=== PATIENT | male | born 1945 | race Two or more races ===

== ENCOUNTER → 2024-04-15 | Outpatient (CLI) | payer MEDICARE, SELFPAY ==
--- NOTE | 2024-04-15 10:00 | XR_ITS ---
Examination: CT left lower extremity, without contrast. 2-D sagittal reconstructions. 2-D coronal reconstructions. 3-D reconstructions. Date and time of exam:April 15, 2024 0955 hours INDICATIONS: Left knee osteoarthritis knee pain 6 years CTDI: vol (mGy):10.4 DLP: (mGycm):795 Technique: Multiple 1.25 mm axial sections of the left lower extremity without intravenous contrast have been obtained. 2-D sagittal and coronal reconstructions have been obtained. 3-D reconstructions have been obtained. Low dose protocols were performed. One or more of the following dose reduction techniques were used; automated exposure control, adjustment of the mA and/or KV according to patient size, use of iterative reconstruction technique. Findings: Significant osteopenia Mild to moderate left hip osteoarthritis No left hip fracture or dislocation Advanced left knee tricompartment osteoarthritis, most severe medial joint space No fracture No patellar dislocation IMPRESSION: Advanced left knee tricompartment osteoarthritis
== END | disposition home or self-care (01) ==
PROVIDERS: PCP Student in an Organized Health Care Education/Training Program; Referring Provider Orthopaedic Surgery Adult Reconstructive Orthopaedic Surgery; Visit Provider Orthopaedic Surgery Adult Reconstructive Orthopaedic Surgery
DX: M17.12 Unilateral primary osteoarthritis, left knee (principal)
CPT/HCPCS: 73700

== ENCOUNTER 2024-05-08 10:54 | Outpatient (AMB) | payer MEDICARE, SELFPAY ==
[2024-05-08 11:19] VITALS: BP 116/58; PULSE 69; RESP 16; TEMP 35.8; O2SAT 97; BMI 27.8
--- NOTE | 2024-05-08 11:19 | RHCORTHONT_ITS ---
Vital signs 05/08/24 11:19 Height 1.7 m Height Method Stated Weight 80.739 kg Weight Measurement Method Standing Scale BMI 27.8 BP 116/58 L Blood Pressure Source Automatic Cuff Blood Pressure Location Left Upper Arm Position Sitting Respiration 16 Pulse 69 Pulse Source Monitor Temp 96.5 F L Temp Source Temporal Artery Scan Pulse Oximetry (%) 97 Oxygen Delivery Method Room Air Med/Allergies Allergies & Medications Allergies No Known Allergies Allergy (Unknown, Verified 05/08/24 11:20) Medication Reconciliation Fluticasone Propionate NASAL * (FLONASE *) 1 spry Nasally BID #0 spry 08/10/14 [History Confirmed 05/08/24] ferrous sulfate 220 mg (44 mg iron)/5 mL oral elixir 65 mg PO BID ##0 08/10/14 [History Confirmed 05/08/24] gabapentin 800 mg tablet 800 mg PO TID #0 tabs 08/10/14 [History Confirmed 05/08/24] lisinopril 10 mg tablet 10 mg PO QDAY #0 tabs 08/10/14 [History Confirmed 05/08/24] loratadine 10 mg tablet (Claritin) 10 mg PO QDAY #0 tabs 08/10/14 [History Confirmed 05/08/24] metoprolol tartrate 50 mg tablet 50 mg PO BID #0 tabs 08/10/14 [History Confirmed 05/08/24] montelukast 10 mg tablet (Singulair) 10 mg PO HS #0 tabs 08/10/14 [History Confirmed 05/08/24] albuterol sulfate 90 mcg/actuation aerosol inhaler (ProAir HFA) 1 puff inhalation QID 09/21/23 [History Confirmed 05/08/24] azelastine 137 mcg (0.1 %) nasal spray 2 spray intranasal BID 09/21/23 [History Confirmed 05/08/24] baclofen 10 mg/5 mL (2 mg/mL) oral solution 20 mg PO QID 09/21/23 [History Confirmed 05/08/24] clopidogrel 75 mg tablet 75 mg PO QDAY 09/21/23 [History Confirmed 05/08/24] diclofenac sodium 1 % topical gel (Arthritis Pain (diclofenac)) 4 g topical QID 09/21/23 [History Confirmed 05/08/24] famotidine 20 mg tablet 20 mg PO QDAY 09/21/23 [History Confirmed 05/08/24] fluticasone fur. 200 mcg-umeclid 62.5 mcg-vilant 25 mcg inhalat.powder (Trelegy Ellipta) 1 inh inhalation Q24H 09/21/23 [History Confirmed 05/08/24] isosorbide mononitrate 30 mg tablet,extended release 24 hr 30 mg PO QAM 09/21/23 [History Confirmed 05/08/24] isosorbide mononitrate 60 mg tablet,extended release 24 hr 60 mg PO QAM 09/21/23 [History Confirmed 05/08/24] melatonin 10 mg capsule 10 mg PO HS PRN 09/21/23 [History Confirmed 05/08/24] mesalamine 1,000 mg rectal suppository 1 g NV QHS 09/21/23 [History Confirmed 05/08/24] naloxone 4 mg/actuation nasal spray (Narcan) 4 mg intranasal Q3M PRN 09/21/23 [H istory Confirmed 05/08/24] nitroglycerin 0.4 mg sublingual tablet 0.4 mg sublingual Q5M PRN 09/21/23 [History Confirmed 05/08/24] repaglinide 0.5 mg tablet 0.5 mg PO TID 09/21/23 [History Confirmed 05/08/24] rosuvastatin 40 mg tablet 40 mg PO QDAY 09/21/23 [History Confirmed 05/08/24] vitamin B complex-vitamin C-folic acid 0.8 mg tablet (Jenni-Blayne) 1 tab PO QDAY 09/21/23 [History Confirmed 05/08/24] Exam Exam Patient is in no acute distress and is cooperative with the examination today. Patient has a normal mood and affect. Breathing is nonlabored. In no respiratory distress. Bilateral extremities were evaluated and demonstrates sensation intact to light touch. Palpable pedal pulses are present. No significant edema is present. Right knee incision is clean dry intact. Range of motion 0 to 115 degrees. The knee feels stable to varus valgus stress as well as AP translation Left knee demonstrates range of motion from 0 to 105 degrees. The knee is tender to palpation medially. He has varus deformity. X-rays demonstrate significant obliteration of the medial joint space. Assessment and Plan Problem List (1) Unilateral primary osteoarthritis, left knee: Status: Acute Plan: 78-year-old male with significant left knee pain and left knee osteoarthritis. We thus discussed total knee replacement is reasonable We will see him back after he gets clearance. We discussed the risk and benefits of surgery in great detail The nature and purpose of the total knee replacement, alternative method(s) of treatment, the material risks involved, and the possibility of complications were fully explained to the patient. The patient does NOT have any of the following contraindications to TKA: - Active infection of the knee joint, OR - Active systemic bacteremia, OR - Active skin infection or open wound at surgical site, OR - Neuropathic arthritis, OR - Severe, rapidly progressive neurological disease, OR - Severe medical condition that makes risks of surgery outweigh the potential benefit The patient was told the most common risks and complications associated with a total knee replacement include, but are not limited to: blood clots in the leg, fatal pulmonary embolism, dislocation of the prosthesis, intraoperative and postoperative fractures of the femur or tibia, infection, failure of the prosthesis or grafting materials, complications from anesthesia, reactions to blood transfusions, postoperative leg length inequality, instability of the knee replacement, nerve damage or injury, vascular injury, delayed wound healing, infection, other injury or even . In addition, there are risks associated with anesthesia given during this operation. Also, the patient was told that after undergoing a total knee replacement there may still be persistent pain or disability. The patient was informed that the success of this operation in part depends upon the mechanical devices which are going to be implanted and that these devices can fail or malfunction, and may need to be repaired or replaced and there are no guarantees as to the longevity of this device or its parts and that it or its parts could fail prematurely. The patient was also notified that during the course of surgery, there may be a need to use bone graft from donors, and that any bone graft used will be carefully screened for communicable diseases, including AIDS, hepatitis, Jaxon-Creutzfeldt, or other diseases, but despite the screening procedures, there is a small chance that they could contract one of these diseases. Finally, the patient was asked to follow completely and fully with all advice and recommended treatments, and that recovery and ultimate outcome are affected by their compliance with recommended treatment. We discussed the risks, benefits and treatment alternatives, and the patient is interested in proceeding with surgery. We will try to set this up as expeditiously as possible Once he obtains clearance (2) Pain in left knee: Status: Acute Advanced Care Planning Discussion Advance care planning discussed with:: patient Office Procedures GNS Level of Care Nursing/Assessment Patient Status: Established Patient Nursing Assessment/Reassesment: Medication Reconciliation, Update PMH in EMR and Vital Signs Coordination of Care: Complex Care and Chronic Disease 1-5 and Education Complex Pt/Fam Established Patient Charge Established Patient Point Assignment: 75 Established Patient Point Charge: EP Level 2 (40-75) MA Intake Visit Data Collection New Patient or Established: Established Patient (seen at [facility] within 3 years) Reason for Visit:: pre op Lt knee replacement Seen by Clinical Staff ONLY (RN/MA): No Verbal consent obtained for Telemed visit?: No Retail Store Clerk Required: No Hx Now: No Questionairres Past Medical History Past Medical History Have you ever been diagnosed with any of the following: Respiratory Problems Smoking: No Subjective Visit Visit for: follow up visit and knee Immunization / Flu Flu Vaccine in the Last 12 Months: Yes Flu Vaccine Exclusion Criteria: Already Received History of Present Illness Chief complaint: pre op lt knee replacement Date of injury / onset of symptoms: >5 years Ned is a pleasant 79-year-old male who presents today for evaluation of his left knee. He is scheduled for total knee replacement. We answered all his questions today. He now has a walker. Personal History BMI Counceling provided: Yes Pain Pain level (0-10): 9 Pain duration: constant Pain location: inside (medial), outside (lateral), anterior and posterior Pain quality: sharp and aching Pain timing: increases with activity Associated signs & symptoms: numbness Ambulatory data Ambulatory device: cane Treatments Improvement with previous injections: Yes Improvement with PT: Yes Improvement with NSAIDS: no Review of Systems Review of Systems: All systems negative unless otherwise noted in HPI.
== END 2024-05-08 11:40 | disposition home or self-care (01) ==
LOC: HODSRG 10:54
PROVIDERS: PCP Student in an Organized Health Care Education/Training Program; Referring Provider Student in an Organized Health Care Education/Training Program; Supervising Provider Orthopaedic Surgery Adult Reconstructive Orthopaedic Surgery; Visit Provider Orthopaedic Surgery Adult Reconstructive Orthopaedic Surgery
DX: M17.12 Unilateral primary osteoarthritis, left knee (principal); M25.562 Pain in left knee
CPT/HCPCS: 99212; G0463

== ENCOUNTER 2024-05-19 05:35 | Day surgery (SDC) | payer MEDICARE, SELFPAY ==
--- NOTE | 2024-05-16 06:00 | EKG_ITS ---
[facility] Test Date: 2024-05-16 Pat Name: TEENA BALBUENA Department: Room: - Gender: Male School Health Assistant: OPHELIA : 1945 Requested By: Emery Robles Order Number: [id number] Reading MD: Emery Robles Measurements Intervals [place] Rate: 80 P: 38 VT: 189 QRS: -11 QRSD: 121 T: 60 QT: 346 QTc: 400 Interpretive Statements SINUS RHYTHM MODERATE INTRAVENTRICULAR CONDUCTION DELAY MINIMAL VOLTAGE CRITERIA FOR LVH, CONSIDER NORMAL VARIANT No previous ECG available for comparison /[id number]/[email or web address]/[id number]
[2024-05-16 07:02] VITALS: BMI 27.5
[2024-05-16 09:29] LABS: Basophils # (Auto) 0.1 Thou/mm3 (0.0-0.2); Basophils % (Auto) 1 % (0-2.5); Eosinophils # (Auto) 0.2 Thou/mm3 (0.0-0.5); Eosinophils % (Auto) 2 % (0-10); Hematocrit 31.5 % (41.0-53.0); Hemoglobin 10.8 g/dL (13.5-16.0); Immature Granulocytes % (Auto) 1 % (0-0); Immature Granulocytes Auto 0.09 Thou/mm3 (0.00-0.00); Lymphocytes # (Auto) 1.5 Thou/mm3 (1.0-4.8); Lymphocytes % (Auto) 18 % (10-50); Mean Corpuscular HGB Conc 34.3 g/dl (31.0-37.0); Mean Corpuscular Hemoglobin 32.5 pg (25.0-35.0); Mean Corpuscular Volume 95 fL (80-100); Monocytes # (Auto) 1.1 Thou/mm3 (0.0-0.8); Monocytes % (Auto) 13 % (0-12); Neutrophils # (Auto) 5.3 Thou/mm3 (1.8-7.7); Neutrophils % (Auto) 65 % (37-80); Nucleated Red Blood Cell % 0 /100 WBC (0); Platelet Count 252 Thou/mm3 (140-440); RDW Standard Deviation 45.9 fL (35.1-43.9); Red Blood Count 3.32 Miln/mm3 (4.50-5.90); White Blood Count 8.2 Thou/mm3 (3.8-10.6)
[2024-05-16 09:42] LABS: Alanine Aminotransferase 25 U/L (10-49); Albumin, Serum 4.3 gm/dL (3.4-4.8); Albumin/Globulin Ratio 1.7 (1.2-2.2); Alkaline Phosphatase 57 U/L (46-116); Anion Gap 6 (7-16); Aspartate Amino Transferase 16 U/L (0-34); BUN/Creatinine Ratio 19 Ratio (12-20); Bilirubin,Total 0.7 mg/dL (0.3-1.2); Blood Urea Nitrogen 37 mg/dL (9-23); Calcium 9.4 mg/dL (8.3-10.6); Calcium (Corrected) 9.4 mg/dL (8.5-10.1); Carbon Dioxide 28.3 mMol/L (20.0-31.0); Chloride 91 mMol/L (98-107); Creatinine (Component) 1.9 mg/dL (0.6-1.3); Globulin 2.5 gm/dL (2.3-3.5); Glucose 181 mg/dL (74-106); Osmolality,Calculated 265 (275-295); Potassium 4.5 mMol/L (3.4-5.1); Sodium 125 mMol/L (136-145); Total Protein 6.8 gm/dL (5.7-8.2); eGFR 36 See Note
[2024-05-16 09:57] LABS: INR 0.9 (0.9-1.3); Partial Thromboplastin Time 23.6 Seconds (22.0-36.0); Prothrombin Time 10.2 Seconds (9.0-12.2)
--- NOTE | 2024-05-16 14:06 | SUR.PREOP ---
Labs and cardiac records reviewed with Dr Castrejon.
[2024-05-19] VITALS (20 sets, daily range): BP systolic 117–160; BP diastolic 54–87; PULSE 72–89; RESP 12–98; TEMP 36.2–37.1; O2SAT 95–100; BMI 27.4
[2024-05-19] MEDS: ACETAMINOPHEN 325 MG TABLET 650 MG PO (06:38)
[2024-05-19] MEDS: MELOXICAM 7.5 MG TABLET PO (06:38)
[2024-05-19] MEDS: PREGABALIN 75 MG CAPSULE PO (06:38)
[2024-05-19] MEDS: SODIUM CHLORIDE 0.9% 500 ML 500 ML 20 ML IV (06:39)
[2024-05-19 07:30] LABS: Anion Gap 6 (7-16); BUN/Creatinine Ratio 18 Ratio (12-20); Blood Urea Nitrogen 30 mg/dL (9-23); Calcium 8.8 mg/dL (8.3-10.6); Carbon Dioxide 24.1 mMol/L (20.0-31.0); Chloride 97 mMol/L (98-107); Creatinine (Component) 1.7 mg/dL (0.6-1.3); Glucose 206 mg/dL (74-106); Osmolality,Calculated 267 (275-295); Potassium 4.4 mMol/L (3.4-5.1); Sodium 127 mMol/L (136-145); eGFR 41 See Note
--- NOTE | 2024-05-19 09:21 | SUR.PHASEI ---
pt received from OR in recovery bay 1. pt asleep but responds to voice, breathing unlabored on 2l nc. v/s stable. pt dressing to left lower extremity cdi. report received from Dr. Robles and Fidel KAMARA.
--- NOTE | 2024-05-19 09:37 | PD.SUROPNT ---
Date of Procedure 05/19/24 Pre Op Diagnosis left knee osteoarthritis Post Op Diagnosis left knee osteoarthritis Procedure left knee osteoarthritis Findings full thickness cartilage loss and osteophytes Procedure Description Indication: The patient is a 79 year old who has a long history of left knee pain. X-rays show degenerative arthritis involving the knee. Over the past several years the patient has had increasing pain, progressive limitation in function. He has failed conservative measures including activity modification, physical therapy, injections, anti-inflammatories, and assistive devices. After a lengthy discussion of the risks and benefits, the patient presents now for total knee replacement. The nature and purpose of the total knee replacement, alternative method(s) of treatment, the material risks involved, and the possibility of complications were fully explained to the patient. The patient was told the most common risks and complications associated with a total knee replacement include, but are not limited to blood clots in the leg, fatal pulmonary embolism, dislocation of the prosthesis, intraoperative and postoperative fractures of the femur or tibia, infection, failure of the prosthesis or grafting materials, complications from anesthesia, reactions to blood transfusions, postoperative leg length inequality, instability of the knee replacement, nerve damage or injury, vascular injury, delayed wound healing, infections, other injury or even . In addition, there are risks associated with anesthesia given during this operation, temporary or permanent numbness on the skin lateral to the incision can be a complication unique to total knee surgery, and kneeling can be painful after knee replacement surgery. Also, the patient was told that after undergoing a total knee replacement there may still be pain or disability. We discussed with the patient that we will be using a robot-assisted technology. We discussed that there is a possibility of converting to manual instrumentation. The patient was informed that the success of this operation in part depends upon the mechanical devices which are going to be implanted and that these devices can fail or malfunction, and may need to be repaired or replaced and there are no guarantees as to the longevity of this device or its part and that it or its parts could fail prematurely. Finally, the patient was asked to follow completely and fully with all advice and recommended treatments, and that recovery and ultimate outcome are affected by their compliance with recommended treatment. Surgical technique: Patient was marked and consented in the pre-operative area. The patient was brought to the operating room and placed on the operating table in a supine position. Prior to positioning, a timeout procedure was performed between the surgeon, the anesthesiologist, and the nursing staff where the patient and the operative side were identified and confirmed. After adequate general anesthetic was obtained, the left lower extremity was prepped and draped in the usual sterile fashion. A weight based dose of Cefazolin were administered within 1 hour prior to incision. The robot was preregistered and calirated before the incision. The extremity was exsanguinated with an esmarch badge and tourniquet inflated to 250mmHg. A midline incision was made. A median parapatellar arthrotomy was made. The patella was subluxed laterally. A medial release was performed to expose the medial tibia. His femoral and tibial pins were placed through an intra incisional manner for both cases. Every effort was made to ensure that the distalmost aspect of the pin was hung in the second cortex. The arrays were then tightened several times to ensure that it was fixed for the remainder of the case. Both femoral and tibial checkpoints were then placed. We then went through the registration process of the bone. We then assessed the knee deformity and attempted to correct it. We also used the robot to aid in judging laxity in both extension and flexion. Final based on laxity and alignment we changed the preoperative assessment to obtain proper proper implant positioning and to correct deformity. Attention was then placed to the tibia. We made a tibial cut using the robot ensuring that both the MCL and the patella tendon were protected with retractors. We then went to the femur and made the posterior cut followed by the anterior cut and the anterior chamfer. The bone was then removed and we made a distal femur cut and a posterior chamfer cut. We verified all cuts. A trial reduction was performed with a size 4 femoral component and a size 4 keeled tibial component. The patella tracked centrally, and no lateral retinacular release was necessary. The trial implants were removed. The arrays, pins, and checkpoints were all removed. We performed a verification that all pins were removed. The cut bone surfaces were lavaged. A size 4 left femoral component, a size 4 keeled tibial component were impacted into position. The knee was felt to be well balanced in the sagittal and coronal plane. The final 4x10 mm cruciate-substituting articular insert was impacted into the tibial tray. The knee was brought out to full extension, flexed up to 120 degrees. It was stable to varus and valgus stress and appropriately balanced in flexion and extension. The wounds were copiously irrigated following deflation of tourniquet. The medial retinaculum was reapproximated with #1 vicryl and quill. The subcutaneous tissues were closed with 0 and 2-0 interrupted Vicryl. The skin was closed with 3-0 Monofilament V loc suture. A sterile dressing was applied. The patient was transferred to a bed and brought to recovery in stable condition. The patient tolerated the procedure well. There were no intraoperative complications. Sponge and needle counts were correct times 2. As the attending surgeon, I attest I was present and performed the entire operation. Grafts/Implants Size 4 CR Femur Size 4 Tibia 10mm poly CS Anesthesia GETA Implants whitney triathlon Pathology / specimen None Pathology comment: none Estimated Blood Loss 150 Disposition observation Surgeon Ajay Raines MD Surgical Staff Operation Date: 05/19/24 07:30 Case Staff Anesthesiologist: Emery Robles RNmanufacturing engineer automotive: Sanam Reeves
--- NOTE | 2024-05-19 09:40 | XR_ITS ---
Examination: Left knee 2 views Technique one AP lateral left knee 2 views Exam date and time: May 19, 2024 1009 hours INDICATIONS: Postop knee replacement today. FINDINGS: Moderate osteopenia Total left knee arthroplasty. Satisfactory alignment. No fracture. IMPRESSION: Total left knee arthroplasty with satisfactory alignment
--- NOTE | 2024-05-19 10:23 | SUR.PHASEII ---
pt able to tolerate oral fluids without difficulty swallowing or nausea/vomiting.
--- NOTE | 2024-05-19 11:45 | SUR.PHASEII ---
pt awake and alert, breathing unlabored on 1l nc. v/s stable. pt dressing to left lower extremity cdi. report called to Love KAMARA. pt will be transferred to room at this time.
--- NOTE | 2024-05-19 12:17 | PD.RESCONSUL ---
HPI Data of Consult Requesting Physician: Ajay Raines MD Attending Provider: Dr. Kyle Crow DO Primary Care Provider: Dr. 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 Patient currently status post uncomplicated left knee replacement on 05/19. Anesthesia has consulted the hospitalist team to monitor the patient postop overnight given current comorbidities. Will review the patient chart, and evaluate. Patient follows up with nephrology, Dr. Priest outpatient. PMHx: Diabetes, diabetic neuropathy, HTN, HLD, CAD with stenting on PLAVIX, COPD, hypothyroidism, CKD 3B most likely PSHx: Left knee replacement MEDS: ALBUTEROL inhaler, AZELASTINE, CLOPIDOGREL, ASPIRIN, FAMOTIDINE, FERROUS SULFATE, FLONASE, GABAPENTIN, ISOSORBIDE mononitrate, LEVOTHYROXINE 50 mcg, LISINOPRIL 2.5 mg, MESALAMINE, METOPROLOL 50 mg, MONTELUKAST, NITROGLYCERIN sublingual, Jenni-Blayne, ROSUVASTATIN 40, REPAGLINIDE 0.5 mg TID. ALLERGIES: No known allergies SH: Tobacco use greater than 45 years ago. Alcohol use, recently quit. Denies drug use. cc:: cc: Ajay Raines MD Exam Vital Signs Temp Pulse Resp BP Pulse Ox O2 Flow Rate 97.2 F 77 16 146/63 H 98 1 05/19/24 11:30 05/19/24 11:30 05/19/24 11:30 05/19/24 11:30 05/19/24 11:30 05/19/24 11:30 Narrative Exam GENERAL: Normal appearing elderly male, NAD HEENT: NCAT.?NICOLÁS. Oral mucosa is moist. Patent Nares NECK: Supple, nontender, no thyromegaly, no meningismus, no JVD, no step offs CHEST: Symmetrical, atraumatic, and with equal expansion, Nontender on palpation no deformity and no crepitus. CARDIOVASCULAR: RRR, no m/g/r LUNGS: CTAB, no w/r/r. Symmetrical chest rise. No intercostal subcostal retraction. ABDOMEN: Soft, flat, nontender. No guarding/rebound tenderness/masses. +BS EXTREMITIES: RLE: Surgical dressing and banding dry, in place and intact. LLE: nontender, no edema/cyanosis SKIN: Warm and dry, no jaundice/rashes. MSK: No lumbar or midline, no CVA, no paraspinal muscle spasm or tenderness. NEURO: WHITLEY x4, CN II-XII grossly intact.?No focal neurologic deficits. PSYCHIATRIC: Normal mood and affect, cooperative, no SI or HI or hallucinations. Results Labs 05/20/24 05:24 05/20/24 05:24 Labs: BMP 05/19/24 07:03 Sodium 127 L Potassium 4.4 Chloride 97 L Carbon Dioxide 24.1 BUN 30 H Creatinine 1.7 H Glucose 206 H Calcium 8.8 Quality Measures Quality Measures VTE prophylaxis Advance care planning discussed with:: patient Medications Home Medications and Allergies Home Medications ?Medication ?Instructions ?Recorded ?Confirmed ?Type Fluticasone Propionate NASAL * 1 spry Nasally BID #0 spry 08/10/14 05/16/24 History (FLONASE *) metoprolol tartrate 50 mg tablet 50 mg PO HS #0 tabs 08/10/14 05/16/24 History montelukast 10 mg tablet 10 mg PO HS #0 tabs 08/10/14 05/16/24 History (Singulair) albuterol sulfate 90 mcg/actuation 2 puff inhalation BID PRN 09/21/23 05/16/24 History aerosol inhaler (ProAir HFA) Shortness Of Breath Or Wheezing azelastine 137 mcg (0.1 %) nasal 2 spray intranasal BID 09/21/23 05/16/24 History spray clopidogrel 75 mg tablet 75 mg PO QDAY 09/21/23 05/16/24 History diclofenac sodium 1 % topical gel 4 g topical QID 09/21/23 05/16/24 History (Arthritis Pain (diclofenac)) famotidine 20 mg tablet 20 mg PO QDAY 09/21/23 05/16/24 History fluticasone fur. 200 mcg-umeclid 1 inh inhalation Q24H 09/21/23 05/16/24 History 62.5 mcg-vilant 25 mcg inhalat.powder (Trelegy Ellipta) isosorbide mononitrate 60 mg 60 mg PO QAM 09/21/23 05/16/24 History tablet,extended release 24 hr melatonin 10 mg capsule 10 mg PO HS 09/21/23 05/16/24 History mesalamine 1,000 mg rectal 1 g OH QHS 09/21/23 05/16/24 History suppository naloxone 4 mg/actuation nasal 4 mg intranasal Q3M PRN Drug 09/21/23 05/16/24 History spray (Narcan) Intoxication Symptoms nitroglycerin 0.4 mg sublingual 0.4 mg sublingual Q5M PRN Chest 09/21/23 05/16/24 History tablet Pain repaglinide 0.5 mg tablet 0.5 mg PO TID 09/21/23 05/16/24 History rosuvastatin 40 mg tablet 40 mg PO QDAY 09/21/23 05/16/24 History vitamin B complex-vitamin C-folic 1 tab PO QDAY 09/21/23 05/16/24 History acid 0.8 mg tablet (Jenni-Blayne) albuterol sulfate 0.63 mg/3 mL 0.63 mg inhalation Q4H PRN 05/16/24 05/16/24 History solution for nebulization Shortness Of Breath Or Wheezing ferrous sulfate 325 mg (65 mg 325 mg PO TID 05/16/24 05/16/24 History iron) tablet gabapentin 400 mg capsule 400 mg PO QDAY 05/16/24 05/16/24 History isosorbide mononitrate 30 mg 30 mg PO HS 05/16/24 05/16/24 History tablet,extended release 24 hr levothyroxine 50 mcg tablet 50 mcg PO QDAY 05/16/24 05/16/24 History lisinopril 2.5 mg tablet 2.5 mg PO QDAY 05/16/24 05/16/24 History vitamin B complex-vitamin C-folic 1 tab PO QDAY 05/16/24 05/16/24 History acid 0.8 mg tablet (Jenni-Blayne) Allergies Allergy/AdvReac Type Severity Reaction Status Date / Time No Known Allergies Allergy Unknown Verified 05/19/24 08:59 Visit Medications Acetaminophen (Acetaminophen 500 Mg Tablet) 1,000 mg PO Q6HR TAMAR Stop: 06/18/24 11:59 Aspirin (Aspirin Ec 81 Mg Tabec) 81 mg PO DAILY TAMAR Stop: 06/19/24 08:59 Sodium Chloride (Ns) 500 mls @ 20 mls/hr IV .Q24H ONE Stop: 05/20/24 05:59 Last Admin: 05/19/24 06:39 Dose: 20 mls/hr Oxycodone HCl (Oxycodone Hcl 5 Mg Ir Tab) 5 mg PO Q6HR PRN PRN Reason: PAIN 1-6 (mild-mod Stop: 05/24/24 09:39 Oxycodone HCl (Oxycodone Hcl 5 Mg Ir Tab) 10 mg PO Q6HR PRN PRN Reason: PAIN SCALE 7-10 (Severe Stop: 05/24/24 09:39 Pantoprazole Sodium (Pantoprazole Inj 40 Mg Vial) 40 mg IV QDAY [facility] Stop: 06/19/24 08:59 Discontinued Medications Acetaminophen (Acetaminophen 325 Mg Tablet) 650 mg PO X1 ONE Stop: 05/19/24 06:01 Last Admin: 05/19/24 06:38 Dose: 650 mg Fentanyl Citrate (Fentanyl Cit Inj 50 Mcg/Ml Amp 2ml) 50 mcg IV Q5MIN PRN PRN Reason: PAIN SCALE 4-10(Mod-Sev Stop: 05/19/24 10:53 Hydralazine HCl (Hydralazine Inj 20 Mg/Ml Vial) 5 mg IV Q20MIN PRN PRN Reason: SEE COMMENTS Stop: 05/19/24 10:53 Hydromorphone HCl (Hydromorphone Inj 2 Mg/Ml Vial) 0.5 mg IV Q10MIN PRN PRN Reason: PAIN SCALE 4-10(Mod-Sev Stop: 05/19/24 10:53 Lactated Ringer's (Lactated Ringers) 1,000 mls @ 20 mls/hr IV .Q24H ONE Stop: 05/20/24 05:59 Meloxicam (Meloxicam 7.5 Mg Tablet) 7.5 mg PO X1 ONE Stop: 05/19/24 06:01 Last Admin: 05/19/24 06:38 Dose: 7.5 mg Meperidine HCl (Meperidine Inj 50 Mg/Ml Vial) 12.5 mg IV Q5M PRN PRN Reason: SHIVERING Stop: 05/19/24 10:53 Metoclopramide HCl (Metoclopramide Inj 5 Mg/Ml Vial 2 Ml) 10 mg IVP X1 PRN; Protocol PRN Reason: NAUSEA OR VOMITING Stop: 05/19/24 10:54 Metoprolol Tartrate (Metoprolol Tartrate Inj 1 Mg/Ml Amp 5 Ml) 1 mg IVP Q5MIN PRN PRN Reason: TACHYCARDIA Stop: 05/19/24 10:54 Midazolam HCl (Midazolam Inj 1 Mg/Ml Vial 2 Ml) 1 mg IV Q5MIN PRN PRN Reason: ANXIETY Stop: 05/19/24 10:53 Ondansetron HCl (Ondansetron Inj 2 Mg/Ml Inj 2 Ml) 4 mg IV X1 PRN PRN Reason: NAUSEA OR VOMITING Stop: 05/19/24 10:53 Pregabalin (Pregabalin 75 Mg Capsule) 75 mg PO X1 ONE Stop: 05/19/24 06:01 Last Admin: 05/19/24 06:38 Dose: 75 mg Assessment & Plan Assessment In summary: 79-year-old male PMHx of diabetes with diabetic neuropathy, hypertension, hyperlipidemia, CAD with stenting on PLAVIX, COPD, GERD, hypothyroidism, 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 Patient currently status post uncomplicated left knee replacement on 05/19. T2DM Diabetic neuropathy Chronic, [id number]. GLUCOSE 206. No A1c on file. ? Continue sliding scale INSULIN ? Continue home GABAPENTIN 400 mg daily ? Accu-Cheks ? Pending A1c CKD 3B Hyponatremia, likely chronic Likely related to diabetes. Patient follows up with Dr. Priest outpatient. Currently not on hemodialysis. Renal function appears at baseline. GFR 36-41, CR 1.9 > 1.7, BUN 30?37. Estimated urine output 150 overnight. Sodium 125 on admission, currently 127. Trending sodium. Consider salt tabs as needed. ? Renally dose meds, avoid overdiuresis and NEPHROTOXINS. ? Resumed home Jenni-Blayne daily ? Daily CMP ? Continue to follow-up with nephrology outpatient. ? Pending repeat sodium Hypothyroidism, chronic ? Resumed home LEVOTHYROXINE 50 mcg HTN HLD CAD s/p stent History of above. BP 146/60, HR 72, likely reactive to pain. Patient denies chest pain or discomfort. Admission EKG shows sinus rhythm. Patient on home METOPROLOL tartrate 50 mg daily. Due to concern for unopposed beta stimulation, will resume METOPROLOL 25 mg daily and adjust as needed. ? Resumed home LISINOPRIL 2.5 mg daily ? Resumed home METOPROLOL 25 mg daily at night ? Resumed home ATORVASTATIN 40 mg daily ? Resumed home NITROGLYCERIN 0.4 mg sublingual PRN ? Anticoagulation deferred to ORTHO team COPD Seasonal allergies Ex-smoker COPD likely 2/2 distant history of smoking. No signs of COPD exacerbation. Lung exam clear. Patient on room air satting in mid 90s. ? Oxygen as needed ? Resumed home ALBUTEROL sulfate 0.60 mg q.4 hours PRN ? Resumed home FLONASE BID ? Resumed home MONTELUKAST 10 mg daily ? Resumed home Osteoarthritis POD 0 left knee replacement Longstanding history of osteoarthritis. POD 0 of uncomplicated left knee replacement. ? Pain control per ORTHO team ? ANTIBIOTICS per ORTHO team Health maintenance Diet: Per ORTHO team GI prophylaxis: PROTONIX DVT prophylaxis: SCDs Antibiotics: Per ORTHO team CODE STATUS: Full code Disposition: Pending ORTHO team recommendations Patient case was discussed with attending, Dr. Kyle Crow DO and senior residents Dr. Agee and Dr. Mcneill. Annabella Prescott DO PGYI Attending Provider Attestation/Addendum I have discussed and was present for the essential components of the history, physical examination, diagnosis, and treatment plan with the resident. I agree with the patient's care as documented by the resident and amended herein by me. Joe Crow DO. Although this document has been carefully reviewed, there may still be some phonetic and other typographical errors. These errors are purely grammatical due to imperfections in the software program and should not be construed in any way to compromise the substance of the patient's medical care during this visit.
[2024-05-19] MEDS: ACETAMINOPHEN 500 MG TABLET 1000 MG PO ×3 (12:40→23:42)
[2024-05-19] MEDS: GABAPENTIN 100 MG, GABAPENTIN 300 MG 400 MG PO (13:09)
--- NOTE | 2024-05-19 14:47 | PD.ANESPROG ---
Documentation for date of: 05/19/24 ANESTHESIA NOTE: Patient had GETA and L adductor canal block for L TKA this morning. Pre-op, he has h/o CAD s/p coronary stent, last 2 yrs ago per pt, on Plavix, last taken on 05/12, h/o HTN, DM, CKD, and also reported h/o vocal cord cancer s/p chemo XRT which was associated with loss of voice and change in voice. He had clearance for the surgery in chart. His pre-op labs showed hyponatremia, which was discussed with the pt, and elevated BUN/Cr. Pre-op, he reported having chest pain, sometimes twice daily or few times a week, lasting 2 minutes only, not associated with dyspnea/dizziness/syncope, and relieved by SL NTG. He denied recent worsening of this pain and denied exertional chest pain. He reported his applied statistician is aware of this and gave him clearance for the surgery. He did well intra-op and in PACU where he rested comfortably, VSS, pain controlled. He received 600 cc NS intra-op. I recommended to the surgeon to consider obtaining medicine or nephrology consult post op given his h/o CKD and hyponatremia. Will defer further management to the surgeon/floor team, including resumption of his cardiac meds unless contraindicated. Emery Robles MD Anesthesia Progress Note Progress Note Most recent Vital Signs: Last Vital Signs Temp 98.7 F 05/19/24 12:51 Pulse 72 05/19/24 12:51 Resp 18 05/19/24 12:51 BP 128/62 05/19/24 12:51 Pulse Ox 98 05/19/24 12:51 O2 Del Method Room Air 05/19/24 12:51 O2 Flow Rate 1 05/19/24 11:30
[2024-05-19] MEDS: INSULIN LISPRO (AdmeLOG) 1 UNIT/0.01 ML UNIT SC (18:06)
[2024-05-19 18:07] LABS: Sodium 121 mMol/L (136-145)
[2024-05-19] MEDS: INSULIN HUM REGULAR 1 UNIT/0.01 ML (PER UNIT) 10 UNIT SC (19:16)
[2024-05-19] MEDS: INSULIN LISPRO (AdmeLOG) 1 UNIT/0.01 ML UNIT 10 UNIT SC (20:28)
[2024-05-19] MEDS: METOPROLOL TARTRATE 25 MG TABLET PO (20:29)
[2024-05-19] MEDS: SODIUM CHLORIDE 1 GM TABLET PO (20:29)
[2024-05-19] MEDS: INSULIN GLARGINE (Lantus) 5 UNIT/0.05 ML (PER 5 UNITS) 10 UNIT SC (20:29)
[2024-05-19] MEDS: ATORVASTATIN CALCIUM 20 MG TABLET 40 MG PO (20:29)
[2024-05-19] MEDS: MONTELUKAST SODIUM 10 MG TABLET PO (20:30)
[2024-05-19] MEDS: FLUTICASONE NAS SPRAY 0.05% 16 GM BTL 1 SPRAY NASAL (20:30)
--- NOTE | 2024-05-19 21:33 | PC.NURSE ---
MD Carmichael made aware of repeat blood sugar of 361 after administration of Lispro 10 units at 2027 and lantus 10 units at 2027, per MD no need for another insulin but need to repeat blood sugar fingerstick in an hour to ler her know the result.
[2024-05-20] VITALS: BP 132/70; PULSE 71; RESP 17; TEMP 36.9; O2SAT 99
[2024-05-20 04:00] VITALS: BP 127/58; PULSE 76; RESP 16; TEMP 36.6; O2SAT 99
[2024-05-20] MEDS: LEVOTHYROXINE SODIUM 25 MCG TABLET PO (05:04)
[2024-05-20] MEDS: ACETAMINOPHEN 500 MG TABLET 1000 MG PO (05:04)
[2024-05-20 06:03] LABS: Basophils % (Auto) 0 % (0-2.5); Eosinophils % (Auto) 0 % (0-10); Hematocrit 26.6 % (41.0-53.0); Hemoglobin 9.5 g/dL (13.5-16.0); Immature Granulocytes % (Auto) 1 % (0-0); Immature Granulocytes Auto 0.07 Thou/mm3 (0.00-0.00); Lymphocytes % (Auto) 7 % (10-50); Mean Corpuscular HGB Conc 35.7 g/dl (31.0-37.0); Mean Corpuscular Hemoglobin 33.1 pg (25.0-35.0); Mean Corpuscular Volume 93 fL (80-100); Monocytes # (Auto) 1.6 Thou/mm3 (0.0-0.8); Monocytes % (Auto) 11 % (0-12); Neutrophils # (Auto) 12.3 Thou/mm3 (1.8-7.7); Neutrophils % (Auto) 82 % (37-80); Nucleated Red Blood Cell % 0 /100 WBC (0); Platelet Count 163 Thou/mm3 (140-440); RDW Standard Deviation 43.8 fL (35.1-43.9); Red Blood Count 2.87 Miln/mm3 (4.50-5.90)
[2024-05-20 06:38] LABS: Alanine Aminotransferase 14 U/L (10-49); Albumin, Serum 3.7 gm/dL (3.4-4.8); Albumin/Globulin Ratio 1.7 (1.2-2.2); Alkaline Phosphatase 54 U/L (46-116); Anion Gap 10 (7-16); Aspartate Amino Transferase 14 U/L (0-34); BUN/Creatinine Ratio 21 Ratio (12-20); Bilirubin,Total 0.4 mg/dL (0.3-1.2); Blood Urea Nitrogen 36 mg/dL (9-23); Calcium 8.4 mg/dL (8.3-10.6); Calcium (Corrected) 8.6 mg/dL (8.5-10.1); Carbon Dioxide 20.2 mMol/L (20.0-31.0); Chloride 96 mMol/L (98-107); Creatinine (Component) 1.7 mg/dL (0.6-1.3); Globulin 2.2 gm/dL (2.3-3.5); Glucose 147 mg/dL (74-106); Magnesium 1.9 mg/dL (1.6-2.6); Osmolality,Calculated 264 (275-295); Phosphorous 4.6 mg/dL (2.4-5.1); Potassium 4.3 mMol/L (3.4-5.1); Sodium 126 mMol/L (136-145); Total Protein 5.9 gm/dL (5.7-8.2); eGFR 41 See Note
[2024-05-20 06:55] LABS: Glucose Estimated Average 154 mg/dL (80-131)
[2024-05-20] MEDS: INSULIN LISPRO (AdmeLOG) 1 UNIT/0.01 ML UNIT SC (07:46)
[2024-05-20 07:47] VITALS: PULSE 89; RESP 20; RESP 96; O2SAT 96
[2024-05-20 08:00] VITALS: BP 125/65; PULSE 73; RESP 16; TEMP 36.5; O2SAT 97
[2024-05-20] MEDS: FLUTICASONE NAS SPRAY 0.05% 16 GM BTL 1 SPRAY NASAL (08:25)
[2024-05-20] MEDS: ASPIRIN EC 81 MG TABEC PO (08:25)
[2024-05-20 08:26] VITALS: BP 130/52; PULSE 78
[2024-05-20] MEDS: VIT B12/Vit C/FA (Nephrovite) TABLET 1 TAB PO (08:26)
[2024-05-20] MEDS: Lisinopril 2.5 MG TABLET PO (08:26)
[2024-05-20] MEDS: PANTOPRAZOLE INJ 40 MG VIAL IV (08:26)
[2024-05-20] MEDS: GABAPENTIN 100 MG, GABAPENTIN 300 MG 400 MG PO (08:26)
--- NOTE | 2024-05-20 12:02 | ESPR_ITS ---
Documentation for date of: 05/20/24 Subjective Subjective Interval history: No acute over night events. Patient tolerating diet without nausea or vomiting. Pain managed with current regimen. Denies fever, chills, headaches, chest pain, sob, cough, GI or urinary symptoms. Exam Vital Signs Temp Pulse Resp BP Pulse Ox O2 Del Method O2 Flow Rate 97.7 F 78 16 130/52 L 97 Nasal Cannula 1 05/20/24 08:00 05/20/24 08:26 05/20/24 08:00 05/20/24 08:26 05/20/24 08:00 05/20/24 08:00 05/20/24 08:00 Narrative Exam GENERAL: Normal appearing elderly male, NAD HEENT: NCAT.?NICOLÁS. Oral mucosa is moist. Patent Nares NECK: Supple, nontender, no thyromegaly, no meningismus, no JVD, no step offs CHEST: Symmetrical, atraumatic, and with equal expansion, Nontender on palpation no deformity and no crepitus. CARDIOVASCULAR: RRR, no m/g/r LUNGS: CTAB, no w/r/r. Symmetrical chest rise. No intercostal subcostal retraction. ABDOMEN: Soft, flat, nontender. No guarding/rebound tenderness/masses. +BS EXTREMITIES: RLE: Surgical dressing and banding dry, in place and intact. LLE: nontender, no edema/cyanosis SKIN: Warm and dry, no jaundice/rashes. MSK: No lumbar or midline, no CVA, no paraspinal muscle spasm or tenderness. NEURO: WHITLEY x4, CN II-XII grossly intact.?No focal neurologic deficits. PSYCHIATRIC: Normal mood and affect, cooperative, no SI or HI or hallucinations. Objective Labs 05/20/24 05:24 05/20/24 05:24 Labs: Laboratory Results - last 24 hr 05/19/24 05/20/24 17:45 05:24 WBC 15.0 H D RBC 2.87 L Hgb 9.5 L Hct 26.6 L MCV 93 MCH 33.1 MCHC 35.7 RDW Std Deviation 43.8 Plt Count 163 D Neut % (Auto) 82 H Lymph % (Auto) 7 L [place] % (Auto) 11 Eos % (Auto) 0 Baso % (Auto) 0 Neut # (Auto) 12.3 H Lymph # (Auto) 1.0 [place] # (Auto) 1.6 H Eos # (Auto) 0.0 Baso # (Auto) 0.0 Immature Gran # (Auto) 0.07 H Absolute Nucleated RBC 0.00 Immature Gran % 1 H Nucleated RBC % 0 Sodium 121 L 126 L Potassium 4.3 Chloride 96 L Carbon Dioxide 20.2 Anion Gap 10 BUN 36 H Creatinine 1.7 H Estim Creat Clear Calc 36.0 L eGFR 41 L BUN/Creatinine Ratio 21 H Glucose [address] Glu mg/dL 154 H Hemoglobin A1c 7.0 H Calculated Osmolality 264 L Calcium 8.4 Corrected Calcium 8.6 Phosphorus 4.6 Magnesium 1.9 Total Bilirubin 0.4 AST 14 ALT 14 Alkaline Phosphatase 54 Total Protein 5.9 Albumin 3.7 Globulin 2.2 L Albumin/Globulin Ratio 1.7 Quality Measures Quality Measures VTE prophylaxis Advance care planning discussed with:: patient Assessment & Plan Plan In summary: 79-year-old male PMHx of diabetes with diabetic neuropathy, hypertension, hyperlipidemia, CAD with stenting on PLAVIX, COPD, GERD, hypothyroidism, 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 Patient currently status post uncomplicated left knee replacement on 05/19. T2DM Diabetic neuropathy Chronic, [id number]. GLUCOSE 206. A1c 7.0 this visit ? Continue sliding scale INSULIN ? Continue home GABAPENTIN 400 mg daily ? Accu-Cheks CKD 3B Hyponatremia, likely chronic Likely related to diabetes. Patient follows up with Dr. Priest outpatient. Currently not on hemodialysis. Renal function appears at baseline. GFR 36-41, CR 1.9 > 1.7, BUN 30?37. Estimated urine output 150 overnight. Sodium 125 on admission. Sodium 121 overnight, likely hyperosmotic hyponatremia in settings of GLUCOSE 400s. Sodium improved after normalizing GLUCOSE and salt tablet x 1, currently sodium 126. ? Renally dose meds, avoid overdiuresis and NEPHROTOXINS. ? Continue home Jenni-Blayne daily ? Fluid restriction to 1500 cc ? Recommended follow-up with nephrology, Dr. Priest, upon discharge. ? Daily CMP ? Pending repeat sodium Hypothyroidism, chronic ? Resumed home LEVOTHYROXINE 50 mcg HTN HLD CAD s/p stent History of above. BP 146/60, HR 72, likely reactive to pain. Patient denies chest pain or discomfort. Admission EKG shows sinus rhythm. Patient on home METOPROLOL tartrate 50 mg daily. Due to concern for unopposed beta stimulation, will resume METOPROLOL 25 mg daily and adjust as needed. ? Resumed home LISINOPRIL 2.5 mg daily ? Resumed home METOPROLOL 25 mg daily at night ? Resumed home ATORVASTATIN 40 mg daily ? Resumed home NITROGLYCERIN 0.4 mg sublingual PRN ? Anticoagulation deferred to ORTHO team COPD Seasonal allergies Ex-smoker COPD likely 2/2 distant history of smoking. No signs of COPD exacerbation. Lung exam clear. Patient on room air satting in mid 90s. ? Oxygen as needed ? Resumed home ALBUTEROL sulfate 0.60 mg q.4 hours PRN ? Resumed home FLONASE BID ? Resumed home MONTELUKAST 10 mg daily ? Resumed home Osteoarthritis POD 0 left knee replacement Longstanding history of osteoarthritis. POD 0 of uncomplicated left knee replacement. ? Pain control per ORTHO team ? ANTIBIOTICS per ORTHO team Health maintenance Diet: Per ORTHO team GI prophylaxis: PROTONIX DVT prophylaxis: SCDs Antibiotics: Per ORTHO team CODE STATUS: Full code Disposition: Pending ORTHO team recommendations Patient case was discussed with attending, Dr. Kyle Crow DO and senior residents Dr. Agee and Dr. Mcneill. Annabella Prescott DO PGYI Attending Provider Attestation/Addendum I have discussed and was present for the essential components of the history, physical examination, diagnosis, and treatment plan with the resident. I agree with the patient's care as documented by the resident and amended herein by me. Joe Crow DO. Patient seen and evaluated this AM. Although this document has been carefully reviewed, there may still be some phonetic and other typographical errors. These errors are purely grammatical due to imperfections in the software program and should not be construed in any way to compromise the substance of the patient's medical care during this visit.
== END 2024-05-20 11:50 | disposition home health service (06) ==
LOC: S2EX 09:45 → S3NX 05-20 06:00
PROVIDERS: Anesthesiology; PCP Student in an Organized Health Care Education/Training Program; Referring Provider Orthopaedic Surgery Adult Reconstructive Orthopaedic Surgery; Visit Provider Orthopaedic Surgery Adult Reconstructive Orthopaedic Surgery
PROC: (CPT 27447; principal; 2024-05-19 07:30)
DX: M17.12 Unilateral primary osteoarthritis, left knee (principal); N18.32 Chronic kidney disease, stage 3b; K21.9 Gastro-esophageal reflux disease without esophagitis; J44.9 Chronic obstructive pulmonary disease, unspecified; I25.10 Atherosclerotic heart disease of native coronary artery without angina pectoris; I12.9 Hypertensive chronic kidney disease with stage 1 through stage 4 chronic kidney disease, or unspecified chronic kidney disease; E87.1 Hypo-osmolality and hyponatremia; E78.5 Hyperlipidemia, unspecified; E11.40 Type 2 diabetes mellitus with diabetic neuropathy, unspecified; E03.9 Hypothyroidism, unspecified; Z01.810 Encounter for preprocedural cardiovascular examination; M25.762 Osteophyte, left knee
CPT/HCPCS: 27447; 20985; 36415; 73560; 80048; 80053; 82010; 83036; 83735; 84100; 84295; 85025; 85610; 85730; 87081; 93005; 97162; A4217; C1713; C1776; J0171; J0690; J1100; J1815; J1885; J2250; J2371; J2470; J2704; J2795; J3010; J3490; J7030; J7040; A4648; A4649; A9270; J1805

== ENCOUNTER 2024-06-03 09:14 | Outpatient (AMB) | payer MEDICARE, SELFPAY ==
--- NOTE | 2024-06-03 09:23 | ORTHONT_ITS ---
Vital signs 06/03/24 09:24 Height 1.7 m Height Method Stated Weight 79.577 kg Weight Measurement Method Standing Scale BMI 27.5 BP 147/70 H Blood Pressure Source Automatic Cuff Blood Pressure Location Right Upper Arm Position Sitting Respiration 18 Pulse 80 Pulse Source Monitor Temp 97.4 F Temp Source Temporal Artery Scan Pulse Oximetry (%) 98 Oxygen Delivery Method Room Air Med/Allergies Allergies & Medications Allergies No Known Allergies Allergy (Unknown, Verified 06/03/24 09:25) Medication Reconciliation Fluticasone Propionate NASAL * (FLONASE *) 1 spry Nasally BID #0 spry 08/10/14 [History Confirmed 06/03/24] metoprolol tartrate 50 mg tablet 50 mg PO HS #0 tabs 08/10/14 [History Confirmed 06/03/24] montelukast 10 mg tablet (Singulair) 10 mg PO HS #0 tabs 08/10/14 [History Confirmed 06/03/24] albuterol sulfate 90 mcg/actuation aerosol inhaler (ProAir HFA) 2 puff inhalation BID PRN Shortness Of Breath Or Wheezing 09/21/23 [History Confirmed 06/03/24] azelastine 137 mcg (0.1 %) nasal spray 2 spray intranasal BID 09/21/23 [History Confirmed 06/03/24] clopidogrel 75 mg tablet 75 mg PO QDAY 09/21/23 [History Confirmed 06/03/24] diclofenac sodium 1 % topical gel (Arthritis Pain (diclofenac)) 4 g topical QID 09/21/23 [History Confirmed 06/03/24] famotidine 20 mg tablet 20 mg PO QDAY 09/21/23 [History Confirmed 06/03/24] fluticasone fur. 200 mcg-umeclid 62.5 mcg-vilant 25 mcg inhalat.powder (Trelegy Ellipta) 1 inh inhalation Q24H 09/21/23 [History Confirmed 06/03/24] isosorbide mononitrate 60 mg tablet,extended release 24 hr 60 mg PO QAM 09/21/23 [History Confirmed 06/03/24] melatonin 10 mg capsule 10 mg PO HS 09/21/23 [History Confirmed 06/03/24] mesalamine 1,000 mg rectal suppository 1 g [place] QHS 09/21/23 [History Confirmed 06/03/24] naloxone 4 mg/actuation nasal spray (Narcan) 4 mg intranasal Q3M PRN Drug Intoxication Symptoms 09/21/23 [History Confirmed 06/03/24] nitroglycerin 0.4 mg sublingual tablet 0.4 mg sublingual Q5M PRN Chest Pain 09/21/23 [History Confirmed 06/03/24] repaglinide 0.5 mg tablet 0.5 mg PO TID 09/21/23 [History Confirmed 06/03/24] rosuvastatin 40 mg tablet 40 mg PO QDAY 09/21/23 [History Confirmed 06/03/24] vitamin B complex-vitamin C-folic acid 0.8 mg tablet (Jenni-Blayne) 1 tab PO QDAY 09/21/23 [History Confirmed 06/03/24] albuterol sulfate 0.63 mg/3 mL solution for nebulization 0.63 mg inhalation Q4H PRN Shortness Of Breath Or Wheezing 05/16/24 [History Confirmed 06/03/24] ferrous sulfate 325 mg (65 mg iron) tablet 325 mg PO TID 05/16/24 [History Confirmed 06/03/24] gabapentin 400 mg capsule 400 mg PO QDAY 05/16/24 [History Confirmed 06/03/24] isosorbide mononitrate 30 mg tablet,extended release 24 hr 30 mg PO HS 05/16/24 [History Confirmed 06/03/24] levothyroxine 50 mcg tablet 50 mcg PO QDAY 05/16/24 [History Confirmed 06/03/24] lisinopril 2.5 mg tablet 2.5 mg PO QDAY 05/16/24 [History Confirmed 06/03/24] vitamin B complex-vitamin C-folic acid 0.8 mg tablet (Jenni-Blayne) 1 tab PO QDAY 05/16/24 [History Confirmed 06/03/24] acetaminophen 500 mg tablet (Acetaminophen Extra Strength) 1,000 mg (2 x 500 mg) PO Q6H PRN pain #90 tabs 05/19/24 [Rx Confirmed 06/03/24] aspirin 81 mg tablet,delayed release 81 mg PO DAILY #60 tabs 05/19/24 [Rx Confirmed 06/03/24] doxycycline hyclate 100 mg tablet 100 mg PO BID #14 tabs 05/19/24 [Rx Confirmed 06/03/24] sennosides 8.6 mg-docusate sodium 50 mg tablet (Senna-S) 1 tab-cap PO QDAY #30 tabs 05/19/24 [Rx Confirmed 06/03/24] cyclobenzaprine 5 mg tablet 5 mg PO QHS PRN muscle spasm #30 tabs 06/03/24 [Rx] oxycodone 5 mg tablet 5 mg PO Q6H PRN pain #28 tabs 06/03/24 [Rx] Exam Exam Patient is in no acute distress and is cooperative with the examination today. Patient has a normal mood and affect. Breathing is nonlabored. In no respiratory distress. Bilateral extremities were evaluated and demonstrates sensation intact to light touch. Palpable pedal pulses are present. No significant edema is present. Left knee incision is clean dry and intact Assessment and Plan Problem List (1) History of total left knee replacement: Status: Acute Plan: Patient is a 79-year-old male status post left total knee replacement. He is doing well. He has minimal pain. Will see her in 4 weeks with new x-rays Advanced Care Planning Discussion Advance care planning discussed with:: patient Office Procedures GNS Level of Care Nursing/Assessment Patient Status: Established Patient Nursing Assessment/Reassesment: Medication Reconciliation, Update PMH in EMR and Vital Signs Coordination of Care: Complex Care and Chronic Disease 1-5, Education Complex P t/Fam, Consent,records obtained, informed consent, Results/Orders obtained and Staff clarify orders Established Patient Charge Established Patient Point Assignment: 95 Established Patient Point Charge: Level 3 (80-115) MA Intake Visit Data Collection New Patient or Established: Established Patient (seen at [facility] within 3 years) Reason for Visit:: 2 week post op LT TKA Seen by Clinical Staff ONLY (RN/MA): No Verbal consent obtained for Telemed visit?: No [employer] Bottom Maker Required: No PCP or OBGYN visit in last 3 months: Yes Hx Now: No Do You Feel Safe at Home: Yes Authorities Contacted: N/A Questionairres Past Medical History Past Medical History Have you ever been diagnosed with any of the following: Neurological Problems Parkinson's Disease: Yes (beginning stages) Seizures: No Cardiology Problems Angina: Yes Coronary Artery Disease: Yes Peripheral Vascular Disease: Yes Hypercholesterolemia: Yes Congestive Heart Failure: No Hypertension: Yes Respiratory Problems Chronic Obstructive Pulmonary Disease (COPD): Yes Asthma: Yes Sleep Apnea: Yes (not using machine) Smoking: No Stomache/Intestinal Problems Hepatitis: No Genital/Urinary Problems Renal Disease: Yes (stage 3) Musculoskeletal Problems Arthritis: Yes Degenerative Disk Disease: Yes Gout: Yes Carpal Tunnel Syndrome: Yes (yun) Head,Eye,Nose,Throat Problems Cataracts: Yes Endocrine Problems Diabetes Mellitus Type 1: No Diabetes Mellitus Type 2: Yes Hypothyroidism: Yes Blood Problems Anemia: Yes Psychologic Problems Anxiety: Yes Other Problems Hospitalization: Yes Shingles: Yes Chemotherapy: Yes (2021) Chicken Pox: Yes Measles: Yes Mumps: Yes Cancer: Yes (vocal cord) Subjective Visit Visit for: follow up visit and knee Immunization / Flu Flu Vaccine in the Last 12 Months: No Flu Vaccine Exclusion Criteria: No Exclusion Criteria History of Present Illness Chief complaint: 2 WK POST OP LT TKA Date of 1st surgery (if applicable): 05/19/24 Ned is 2 weeks status post knee replacement.He reports that he is doing well Pain Pain level (0-10): 9 Pain duration: ALL DAY Pain location: anterior and posterior Pain quality: sharp, dull and aching Pain timing: night, increases with activity and stairs Associated signs & symptoms: numbness Ambulatory data Ambulatory device: walker Treatments Improvement with previous injections: No Improvement with PT: No Improvement with NSAIDS: n/a Review of Systems Review of Systems: All systems negative unless otherwise noted in HPI.
[2024-06-03 09:24] VITALS: BP 147/70; PULSE 80; RESP 18; TEMP 36.3; O2SAT 98; BMI 27.5
== END 2024-06-03 09:51 | disposition home or self-care (01) ==
LOC: HODSRG 09:14
PROVIDERS: PCP Student in an Organized Health Care Education/Training Program; Referring Provider Student in an Organized Health Care Education/Training Program; Supervising Provider Orthopaedic Surgery Adult Reconstructive Orthopaedic Surgery; Visit Provider Orthopaedic Surgery Adult Reconstructive Orthopaedic Surgery
DX: Z96.652 Presence of left artificial knee joint (principal); I10 Essential (primary) hypertension; E78.00 Pure hypercholesterolemia, unspecified; G20.A1 Parkinson's disease without dyskinesia, without mention of fluctuations; I25.10 Atherosclerotic heart disease of native coronary artery without angina pectoris
CPT/HCPCS: 99213; G0463

== ENCOUNTER 2024-07-01 07:58 | Outpatient (AMB) | payer MEDICARE, SELFPAY ==
[2024-07-01 08:07] VITALS: BP 141/63; PULSE 88; RESP 18; TEMP 36.3; O2SAT 98; BMI 27.1
--- NOTE | 2024-07-01 08:07 | ORTHONT_ITS ---
Vital signs 07/01/24 08:07 Height 1.7 m Height Method Stated Weight 78.273 kg Weight Measurement Method Standing Scale BMI 27.1 BP 141/63 H Blood Pressure Source Automatic Cuff Blood Pressure Location Right Upper Arm Position Sitting Respiration 18 Pulse 88 Pulse Source Monitor Temp 97.3 F Temp Source Temporal Artery Scan Pulse Oximetry (%) 98 Oxygen Delivery Method Room Air Med/Allergies Allergies & Medications Allergies No Known Allergies Allergy (Unknown, Verified 07/01/24 08:08) Medication Reconciliation Fluticasone Propionate NASAL * (FLONASE *) 1 spry Nasally BID #0 spry 08/10/14 [History Confirmed 07/01/24] metoprolol tartrate 50 mg tablet 50 mg PO HS #0 tabs 08/10/14 [History Confirmed 07/01/24] montelukast 10 mg tablet (Singulair) 10 mg PO HS #0 tabs 08/10/14 [History Confirmed 07/01/24] albuterol sulfate 90 mcg/actuation aerosol inhaler (ProAir HFA) 2 puff inhalation BID PRN Shortness Of Breath Or Wheezing 09/21/23 [History Confirmed 07/01/24] azelastine 137 mcg (0.1 %) nasal spray 2 spray intranasal BID 09/21/23 [History Confirmed 07/01/24] clopidogrel 75 mg tablet 75 mg PO QDAY 09/21/23 [History Confirmed 07/01/24] diclofenac sodium 1 % topical gel (Arthritis Pain (diclofenac)) 4 g topical QID 09/21/23 [History Confirmed 07/01/24] famotidine 20 mg tablet 20 mg PO QDAY 09/21/23 [History Confirmed 07/01/24] fluticasone fur. 200 mcg-umeclid 62.5 mcg-vilant 25 mcg inhalat.powder (Trelegy Ellipta) 1 inh inhalation Q24H 09/21/23 [History Confirmed 07/01/24] isosorbide mononitrate 60 mg tablet,extended release 24 hr 60 mg PO QAM 09/21/23 [History Confirmed 07/01/24] melatonin 10 mg capsule 10 mg PO HS 09/21/23 [History Confirmed 07/01/24] mesalamine 1,000 mg rectal suppository 1 g [place] QHS 09/21/23 [History Confirmed 07/01/24] naloxone 4 mg/actuation nasal spray (Narcan) 4 mg intranasal Q3M PRN Drug Intoxication Symptoms 09/21/23 [History Confirmed 07/01/24] nitroglycerin 0.4 mg sublingual tablet 0.4 mg sublingual Q5M PRN Chest Pain 09/21/23 [History Confirmed 07/01/24] repaglinide 0.5 mg tablet 0.5 mg PO TID 09/21/23 [History Confirmed 07/01/24] rosuvastatin 40 mg tablet 40 mg PO QDAY 09/21/23 [History Confirmed 07/01/24] vitamin B complex-vitamin C-folic acid 0.8 mg tablet (Jenni-Blayne) 1 tab PO QDAY 09/21/23 [History Confirmed 07/01/24] albuterol sulfate 0.63 mg/3 mL solution for nebulization 0.63 mg inhalation Q4H PRN Shortness Of Breath Or Wheezing 05/16/24 [History Confirmed 07/01/24] ferrous sulfate 325 mg (65 mg iron) tablet 325 mg PO TID 05/16/24 [History Confirmed 07/01/24] gabapentin 400 mg capsule 400 mg PO QDAY 05/16/24 [History Confirmed 07/01/24] isosorbide mononitrate 30 mg tablet,extended release 24 hr 30 mg PO HS 05/16/24 [History Confirmed 07/01/24] levothyroxine 50 mcg tablet 50 mcg PO QDAY 05/16/24 [History Confirmed 07/01/24] lisinopril 2.5 mg tablet 2.5 mg PO QDAY 05/16/24 [History Confirmed 07/01/24] vitamin B complex-vitamin C-folic acid 0.8 mg tablet (Jenni-Blayne) 1 tab PO QDAY 05/16/24 [History Confirmed 07/01/24] acetaminophen 500 mg tablet (Acetaminophen Extra Strength) 1,000 mg (2 x 500 mg) PO Q6H PRN pain #90 tabs 05/19/24 [Rx Confirmed 07/01/24] aspirin 81 mg tablet,delayed release 81 mg PO DAILY #60 tabs 05/19/24 [Rx Confirmed 07/01/24] doxycycline hyclate 100 mg tablet 100 mg PO BID #14 tabs 05/19/24 [Rx Confirmed 07/01/24] sennosides 8.6 mg-docusate sodium 50 mg tablet (Senna-S) 1 tab-cap PO QDAY #30 tabs 05/19/24 [Rx Confirmed 07/01/24] cyclobenzaprine 5 mg tablet 5 mg PO QHS PRN muscle spasm #30 tabs 06/03/24 [Rx Confirmed 07/01/24] oxycodone 5 mg tablet 5 mg PO Q6H PRN pain #28 tabs 06/03/24 [Rx Confirmed 07/01/24] cyclobenzaprine 5 mg tablet 5 mg PO QHS #60 tabs 07/01/24 [Rx] Exam Exam Patient is in no acute distress and is cooperative with the examination today. Patient has a normal mood and affect. Breathing is nonlabored. In no respiratory distress. Bilateral extremities were evaluated and demonstrates sensation intact to light touch. Palpable pedal pulses are present. No significant edema is present. Left knee incision is clean dry intact. Range of motion is 0 to 110 degrees Assessment and Plan Problem List (1) History of total left knee replacement: Status: Acute Plan: Patient is a 79-year-old male status post left total knee replacement. He is doing well. He has minimal pain. He did not get new x-rays. We will see him back in approximately 7 to 8 weeks with new x-rays Advanced Care Planning Discussion Advance care planning discussed with:: patient Office Procedures GNS Level of Care Nursing/Assessment Patient Status: Established Patient Nursing Assessment/Reassesment: Medication Reconciliation, Update PMH in EMR and Vital Signs Coordination of Care: Complex Care and Chronic Disease 1-5, Education Complex Pt/Fam, Consent,records obtained, informed consent, Results/Orders obtained and Staff clarify orders Established Patient Charge Established Patient Point Assignment: 95 Established Patient Point Charge: EP Level 3 (80-115) MA Intake Visit Data Collection New Patient or Established: Established Patient (seen at [facility] within 3 years) Reason for Visit:: FOLLOW UP POST OP Seen by Clinical Staff ONLY (RN/MA): No Bsa/Aml Compliance Officer Required: No PCP or OBGYN visit in last 3 months: Yes Hx Now: No Do You Feel Safe at Home: Yes Authorities Contacted: N/A Questionairres Past Medical History Past Medical History Have you ever been diagnosed with any of the following: Neurological Problems Parkinson's Disease: Yes (beginning stages) Seizures: No Cardiology Problems Angina: Yes Coronary Artery Disease: Yes Peripheral Vascular Disease: Yes Hypercholesterolemia: Yes Congestive Heart Failure: No Hypertension: Yes Respiratory Problems Chronic Obstructive Pulmonary Disease (COPD): Yes Asthma: Yes Sleep Apnea: Yes (not using machine) Smoking: No Stomache/Intestinal Problems Hepatitis: No Genital/Urinary Problems Renal Disease: Yes (stage 3) Musculoskeletal Problems Arthritis: Yes Degenerative Disk Disease: Yes Gout: Yes Carpal Tunnel Syndrome: Yes (yun) Head,Eye,Nose,Throat Problems Cataracts: Yes Endocrine Problems Diabetes Mellitus Type 1: No Diabetes Mellitus Type 2: Yes Hypothyroidism: Yes Blood Problems Anemia: Yes Psychologic Problems Anxiety: Yes Other Problems Hospitalization: Yes Shingles: Yes Chemotherapy: Yes (2021) Chicken Pox: Yes Measles: Yes Mumps: Yes Cancer: Yes (vocal cord) Subjective Visit Visit for: follow up visit, post op #1 and knee Immunization / Flu Flu Vaccine in the Last 12 Months: Yes Flu Vaccine Exclusion Criteria: Already Received History of Present Illness Chief complaint: Left knee pain Ned is a pleasant 79-year-old male with a left knee pain and left knee total replacement done 6 weeks ago. He is doing well Pain Pain level (0-10): 7 Pain duration: CONSTANT Pain location: inside (medial) Pain quality: sharp, aching and burning Pain timing: night, increases with activity and stairs Associated signs & symptoms: none Ambulatory data Ambulatory device: cane Treatments Improvement with previous injections: No Improvement with PT: No Improvement with NSAIDS: no Review of Systems Review of Systems: All systems negative unless otherwise noted in HPI.
== END 2024-07-01 08:35 | disposition home or self-care (01) ==
LOC: HODSRG 07:58
PROVIDERS: PCP Student in an Organized Health Care Education/Training Program; Referring Provider Student in an Organized Health Care Education/Training Program; Supervising Provider Orthopaedic Surgery Adult Reconstructive Orthopaedic Surgery; Visit Provider Orthopaedic Surgery Adult Reconstructive Orthopaedic Surgery
DX: Z96.652 Presence of left artificial knee joint (principal); M25.562 Pain in left knee; I10 Essential (primary) hypertension; E78.00 Pure hypercholesterolemia, unspecified; I25.10 Atherosclerotic heart disease of native coronary artery without angina pectoris; G20.A1 Parkinson's disease without dyskinesia, without mention of fluctuations
CPT/HCPCS: 99213; G0463

== ENCOUNTER → 2024-08-07 | Outpatient (CLI) | payer MEDICARE, SELFPAY ==
--- NOTE | 2024-08-07 14:51 | XR_ITS ---
Examination: Left knee 4 views TECHNIQUE: Weightbearing AP oblique lateral axial left knee 4 views Exam date and time: August 07, 2024 1509 hours INDICATIONS: Persistent pain post knee replacement 3 months ago. FINDINGS: Moderate osteopenia. Total left knee arthroplasty. Satisfactory alignment. No fracture. No loosening of the prosthetic components IMPRESSION: Total left knee arthroplasty with satisfactory alignment
== END | disposition home or self-care (01) ==
PROVIDERS: PCP Orthopaedic Surgery Adult Reconstructive Orthopaedic Surgery; Referring Provider Orthopaedic Surgery Adult Reconstructive Orthopaedic Surgery; Visit Provider Orthopaedic Surgery Adult Reconstructive Orthopaedic Surgery
DX: M25.562 Pain in left knee (principal); Z96.652 Presence of left artificial knee joint
CPT/HCPCS: 73564

== ENCOUNTER 2024-08-19 10:26 | Outpatient (AMB) | payer MEDICARE, SELFPAY ==
--- NOTE | 2024-08-19 10:36 | ORTHONT_ITS ---
Vital signs 08/19/24 10:37 Height 1.7 m Height Method Stated Weight 78.557 kg Weight Measurement Method Standing Scale BMI 27.1 BP 169/71 H Blood Pressure Source Automatic Cuff Blood Pressure Location Left Upper Arm Position Sitting Respiration 19 Pulse 89 Pulse Source Monitor Temp 97.2 F Temp Source Temporal Artery Scan Pulse Oximetry (%) 98 Oxygen Delivery Method Room Air Med/Allergies Allergies & Medications Allergies No Known Allergies Allergy (Unknown, Verified 08/19/24 10:37) Medication Reconciliation Fluticasone Propionate NASAL * (FLONASE *) 1 spry Nasally BID #0 spry 08/10/14 [History Confirmed 08/19/24] metoprolol tartrate 50 mg tablet 50 mg PO HS #0 tabs 08/10/14 [History Confirmed 08/19/24] montelukast 10 mg tablet (Singulair) 10 mg PO HS #0 tabs 08/10/14 [History Confirmed 08/19/24] albuterol sulfate 90 mcg/actuation aerosol inhaler (ProAir HFA) 2 puff inhalation BID PRN Shortness Of Breath Or Wheezing 09/21/23 [History Confirmed 08/19/24] azelastine 137 mcg (0.1 %) nasal spray 2 spray intranasal BID 09/21/23 [History Confirmed 08/19/24] clopidogrel 75 mg tablet 75 mg PO QDAY 09/21/23 [History Confirmed 08/19/24] diclofenac sodium 1 % topical gel (Arthritis Pain (diclofenac)) 4 g topical QID 09/21/23 [History Confirmed 08/19/24] famotidine 20 mg tablet 20 mg PO QDAY 09/21/23 [History Confirmed 08/19/24] fluticasone fur. 200 mcg-umeclid 62.5 mcg-vilant 25 mcg inhalat.powder (Trelegy Ellipta) 1 inh inhalation Q24H 09/21/23 [History Confirmed 08/19/24] melatonin 10 mg capsule 10 mg PO HS 09/21/23 [History Confirmed 08/19/24] mesalamine 1,000 mg rectal suppository 1 g [place] QHS 09/21/23 [History Confirmed 08/19/24] naloxone 4 mg/actuation nasal spray (Narcan) 4 mg intranasal Q3M PRN Drug Intoxication Symptoms 09/21/23 [History Confirmed 08/19/24] nitroglycerin 0.4 mg sublingual tablet 0.4 mg sublingual Q5M PRN Chest Pain 09/21/23 [History Confirmed 08/19/24] repaglinide 0.5 mg tablet 0.5 mg PO TID 09/21/23 [History Confirmed 08/19/24] rosuvastatin 40 mg tablet 40 mg PO QDAY 09/21/23 [History Confirmed 08/19/24] albuterol sulfate 0.63 mg/3 mL solution for nebulization 0.63 mg inhalation Q4H PRN Shortness Of Breath Or Wheezing 05/16/24 [History Confirmed 08/19/24] ferrous sulfate 325 mg (65 mg iron) tablet 325 mg PO TID 05/16/24 [History Confirmed 08/19/24] gabapentin 400 mg capsule 400 mg PO QDAY 05/16/24 [History Confirmed 08/19/24] isosorbide mononitrate 30 mg tablet,extended release 24 hr 30 mg PO HS 05/16/24 [History Confirmed 08/19/24] levothyroxine 50 mcg tablet 50 mcg PO QDAY 05/16/24 [History Confirmed 08/19/24] lisinopril 2.5 mg tablet 2.5 mg PO QDAY 05/16/24 [History Confirmed 08/19/24] vitamin B complex-vitamin C-folic acid 0.8 mg tablet (Jenni-Blayne) 1 tab PO QDAY 05/16/24 [History Confirmed 08/19/24] acetaminophen 500 mg tablet (Acetaminophen Extra Strength) 1,000 mg (2 x 500 mg) PO Q6H PRN pain #90 tabs 05/19/24 [Rx Confirmed 08/19/24] aspirin 81 mg tablet,delayed release 81 mg PO DAILY #60 tabs 05/19/24 [Rx Confirmed 08/19/24] doxycycline hyclate 100 mg tablet 100 mg PO BID #14 tabs 05/19/24 [Rx Confirmed 08/19/24] sennosides 8.6 mg-docusate sodium 50 mg tablet (Senna-S) 1 tab-cap PO QDAY #30 tabs 05/19/24 [Rx Confirmed 08/19/24] oxycodone 5 mg tablet 5 mg PO Q6H PRN pain #28 tabs 06/03/24 [Rx Confirmed 08/19/24] cyclobenzaprine 5 mg tablet 5 mg PO QHS #60 tabs 07/01/24 [Rx Confirmed 08/19/24] Exam Exam Patient is in no acute distress and is cooperative with the examination today. Patient has a normal mood and affect. Breathing is nonlabored. In no respiratory distress. Bilateral extremities were evaluated and demonstrates sensation intact to light touch. Palpable pedal pulses are present. No significant edema is present. Left knee incision is clean dry intact. Range of motion is 0 to 110 degrees Assessment and Plan Problem List (1) History of total left knee replacement: Status: Acute Plan: Patient is a 79-year-old male status post left total knee replacement. He is d oing well. He has minimal pain. We will see him back in approximately 8 weeks Advanced Care Planning Discussion Advance care planning discussed with:: patient Office Procedures GNS Level of Care Nursing/Assessment Patient Status: Established Patient Nursing Assessment/Reassesment: Medication Reconciliation, Update PMH in EMR and Vital Signs Coordination of Care: Complex Care and Chronic Disease 1-5, Education Complex Pt/Fam, Consent,records obtained, informed consent, Results/Orders obtained and Staff clarify orders Established Patient Charge Established Patient Point Assignment: 95 Established Patient Point Charge: EP Level 3 (80-115) MA Intake Visit Data Collection New Patient or Established: Established Patient (seen at [facility] within 3 years) Reason for Visit:: FOLLOW UP 6 WEEK POST OP Seen by Clinical Staff ONLY (RN/MA): No PCP or OBGYN visit in last 3 months: Yes Hx Now: No Do You Feel Safe at Home: Yes Authorities Contacted: N/A Questionairres Past Medical History Past Medical History Have you ever been diagnosed with any of the following: Neurological Problems Parkinson's Disease: Yes (beginning stages) Seizures: No Cardiology Problems Angina: Yes Coronary Artery Disease: Yes Peripheral Vascular Disease: Yes Hypercholesterolemia: Yes Congestive Heart Failure: No Hypertension: Yes Respiratory Problems Chronic Obstructive Pulmonary Disease (COPD): Yes Asthma: Yes Sleep Apnea: Yes (not using machine) Smoking: No Smoking Cessation Counseling: No Smoking Exposure: No Stomache/Intestinal Problems Hepatitis: No Genital/Urinary Problems Renal Disease: Yes (stage 3) Musculoskeletal Problems Arthritis: Yes Degenerative Disk Disease: Yes Gout: Yes Carpal Tunnel Syndrome: Yes (yun) Head,Eye,Nose,Throat Problems Cataracts: Yes Endocrine Problems Diabetes Mellitus Type 1: No Diabetes Mellitus Type 2: Yes Hypothyroidism: Yes Blood Problems Anemia: Yes Psychologic Problems Anxiety: Yes Other Problems Hospitalization: Yes Shingles: Yes Chemotherapy: Yes (2021) Chicken Pox: Yes Measles: Yes Mumps: Yes Cancer: Yes (vocal cord) Subjective Visit Visit for: follow up visit and post op #3 Immunization / Flu Flu Vaccine in the Last 12 Months: No Flu Vaccine Exclusion Criteria: No Exclusion Criteria History of Present Illness Chief complaint: Left knee pain Ned is a pleasant 79-year-old male with a left knee pain and left knee total replacement done 8 weeks ago. He is doing well Pain Pain level (0-10): 5 Pain duration: ON AND OFF Pain location: inside (medial) Pain quality: dull and aching Pain timing: increases with activity Associated signs & symptoms: numbness Ambulatory data Ambulatory device: none Treatments Improvement with previous injections: No Improvement with PT: No Improvement with NSAIDS: no Review of Systems Review of Systems: All systems negative unless otherwise noted in HPI.
[2024-08-19 10:37] VITALS: BP 169/71; PULSE 89; RESP 19; TEMP 36.2; O2SAT 98; BMI 27.1
== END 2024-08-19 10:43 | disposition home or self-care (01) ==
LOC: HODSRG 10:26
PROVIDERS: PCP Student in an Organized Health Care Education/Training Program; Referring Provider Student in an Organized Health Care Education/Training Program; Supervising Provider Orthopaedic Surgery Adult Reconstructive Orthopaedic Surgery; Visit Provider Orthopaedic Surgery Adult Reconstructive Orthopaedic Surgery
DX: Z96.652 Presence of left artificial knee joint (principal); I10 Essential (primary) hypertension; I25.10 Atherosclerotic heart disease of native coronary artery without angina pectoris; E78.00 Pure hypercholesterolemia, unspecified; G20.A1 Parkinson's disease without dyskinesia, without mention of fluctuations; G47.30 Sleep apnea, unspecified
CPT/HCPCS: 99213; G0463

== ENCOUNTER 2024-10-21 13:20 | Outpatient (AMB) | payer MEDICARE, SELFPAY ==
[2024-10-21 13:33] VITALS: BP 122/64; PULSE 77; RESP 18; TEMP 36.6; O2SAT 96; BMI 27.8
--- NOTE | 2024-10-21 13:33 | ORTHONT_ITS ---
Vital signs 10/21/24 13:33 Height 1.7 m Height Method Stated Weight 80.314 kg Weight Measurement Method Standing Scale BMI 27.8 BP 122/64 Blood Pressure Source Automatic Cuff Blood Pressure Location Left Upper Arm Position Sitting Respiration 18 Pulse 77 Pulse Source Monitor Temp 97.8 F Temp Source Temporal Artery Scan Pulse Oximetry (%) 96 Oxygen Delivery Method Room Air Med/Allergies Allergies & Medications Allergies No Known Allergies Allergy (Unknown, Verified 10/21/24 13:40) Medication Reconciliation Fluticasone Propionate NASAL * (FLONASE *) 1 spry Nasally BID #0 spry 08/10/14 [History Confirmed 10/21/24] metoprolol tartrate 50 mg tablet 50 mg PO HS #0 tabs 08/10/14 [History Confirmed 10/21/24] montelukast 10 mg tablet (Singulair) 10 mg PO HS #0 tabs 08/10/14 [History Co nfirmed 10/21/24] albuterol sulfate 90 mcg/actuation aerosol inhaler (ProAir HFA) 2 puff inhalation BID PRN Shortness Of Breath Or Wheezing 09/21/23 [History Confirmed 10/21/24] azelastine 137 mcg (0.1 %) nasal spray 2 spray intranasal BID 09/21/23 [History Confirmed 10/21/24] clopidogrel 75 mg tablet 75 mg PO QDAY 09/21/23 [History Confirmed 10/21/24] diclofenac sodium 1 % topical gel (Arthritis Pain (diclofenac)) 4 g topical QID 09/21/23 [History Confirmed 10/21/24] famotidine 20 mg tablet 20 mg PO QDAY 09/21/23 [History Confirmed 10/21/24] fluticasone fur. 200 mcg-umeclid 62.5 mcg-vilant 25 mcg inhalat.powder (Trelegy Ellipta) 1 inh inhalation Q24H 09/21/23 [History Confirmed 10/21/24] melatonin 10 mg capsule 10 mg PO HS 09/21/23 [History Confirmed 10/21/24] mesalamine 1,000 mg rectal suppository 1 g MN QHS 09/21/23 [History Confirmed 10/21/24] naloxone 4 mg/actuation nasal spray (Narcan) 4 mg intranasal Q3M PRN Drug Intoxication Symptoms 09/21/23 [History Confirmed 10/21/24] nitroglycerin 0.4 mg sublingual tablet 0.4 mg sublingual Q5M PRN Chest Pain 09/21/23 [History Confirmed 10/21/24] repaglinide 0.5 mg tablet 0.5 mg PO TID 09/21/23 [History Confirmed 10/21/24] rosuvastatin 40 mg tablet 40 mg PO QDAY 09/21/23 [History Confirmed 10/21/24] albuterol sulfate 0.63 mg/3 mL solution for nebulization 0.63 mg inhalation Q4H PRN Shortness Of Breath Or Wheezing 05/16/24 [History Confirmed 10/21/24] ferrous sulfate 325 mg (65 mg iron) tablet 325 mg PO TID 05/16/24 [History Confirmed 10/21/24] gabapentin 400 mg capsule 400 mg PO QDAY 05/16/24 [History Confirmed 10/21/24] isosorbide mononitrate 30 mg tablet,extended release 24 hr 30 mg PO HS 05/16/24 [History Confirmed 10/21/24] levothyroxine 50 mcg tablet 50 mcg PO QDAY 05/16/24 [History Confirmed 10/21/24] lisinopril 2.5 mg tablet 2.5 mg PO QDAY 05/16/24 [History Confirmed 10/21/24] vitamin B complex-vitamin C-folic acid 0.8 mg tablet (Jenni-Blayne) 1 tab PO QDAY 05/16/24 [History Confirmed 10/21/24] acetaminophen 500 mg tablet (Acetaminophen Extra Strength) 1,000 mg (2 x 500 mg) PO Q6H PRN pain #90 tabs 05/19/24 [Rx Confirmed 10/21/24] aspirin 81 mg tablet,delayed release 81 mg PO DAILY #60 tabs 05/19/24 [Rx Confirmed 10/21/24] doxycycline hyclate 100 mg tablet 100 mg PO BID #14 tabs 05/19/24 [Rx Confirmed 10/21/24] sennosides 8.6 mg-docusate sodium 50 mg tablet (Senna-S) 1 tab-cap PO QDAY #30 tabs 05/19/24 [Rx Confirmed 10/21/24] oxycodone 5 mg tablet 5 mg PO Q6H PRN pain #28 tabs 06/03/24 [Rx Confirmed 10/21/24] cyclobenzaprine 5 mg tablet 5 mg PO QHS #60 tabs 07/01/24 [Rx Confirmed 10/21/24] Exam Exam Patient is in no acute distress and is cooperative with the examination today. Patient has a normal mood and affect. Breathing is nonlabored. In no respiratory distress. Bilateral extremities were evaluated and demonstrates sensation intact to light touch. Palpable pedal pulses are present. No significant edema is present. Left knee incision is clean dry intact. Range of motion is 0 to 110 degrees X-rays from July demonstrates a cementless total knee replacement in good alignment and position Assessment and Plan Problem List (1) History of total left knee replacement: Status: Acute Plan: Patient is a 79-year-old male status post left total knee replacement. He is doing well. He has minimal pain. We will see him back in approximately 12 weeks We will see the patient back in 12 weeks Advanced Care Planning Discussion Advance care planning discussed with:: patient Office Procedures GNS Level of Care Nursing/Assessment Patient Status: Established Patient Nursing Assessment/Reassesment: Medication Reconciliation, Update PMH in EMR and Vital Signs Coordination of Care: Complex Care and Chronic Disease 1-5, Education Complex Pt/Fam, Consent,records obtained, informed consent, Results/Orders obtained and Staff clarify orders Established Patient Charge Established Patient Point Assignment: 95 Established Patient Point Charge: EP Level 3 (80-115) MA Intake Visit Data Collection New Patient or Established: Established Patient (seen at [facility] within 3 years) Reason for Visit:: 2 MTH F/U Seen by Clinical Staff ONLY (RN/MA): No PCP or OBGYN visit in last 3 months: Yes Hx Now: No Do You Feel Safe at Home: Yes Authorities Contacted: N/A Questionairres Past Medical History Past Medical History Have you ever been diagnosed with any of the following: Neurological Problems Parkinson's Disease: Yes (beginning stages) Seizures: No Cardiology Problems Angina: Yes Coronary Artery Disease: Yes Peripheral Vascular Disease: Yes Hypercholesterolemia: Yes Congestive Heart Failure: No Hypertension: Yes Respiratory Problems Chronic Obstructive Pulmonary Disease (COPD): Yes Asthma: Yes Sleep Apnea: Yes (not using machine) Smoking: No Smoking Cessation Counseling: No Smoking Exposure: No Stomache/Intestinal Problems Hepatitis: No Genital/Urinary Problems Renal Disease: Yes (stage 3) Musculoskeletal Problems Arthritis: Yes Degenerative Disk Disease: Yes Gout: Yes Carpal Tunnel Syndrome: Yes (yun) Head,Eye,Nose,Throat Problems Cataracts: Yes Endocrine Problems Diabetes Mellitus Type 1: No Diabetes Mellitus Type 2: Yes Hypothyroidism: Yes Blood Problems Anemia: Yes Psychologic Problems Anxiety: Yes Other Problems Hospitalization: Yes Shingles: Yes Chemotherapy: Yes (2021) Chicken Pox: Yes Measles: Yes Mumps: Yes Cancer: Yes (vocal cord) Subjective Visit Visit for: follow up visit and knee Immunization / Flu Flu Vaccine in the Last 12 Months: No Flu Vaccine Exclusion Criteria: No Exclusion Criteria History of Present Illness Chief complaint: Left knee pain Ned is a pleasant 79-year-old male with a left knee pain and left knee total replacement done 6 months ago. He is doing well. He is very happy. We will see him in 6 monthds with new xrays. Pain Pain level (0-10): 3 Pain duration: ON AND OFF Pain location: anterior Pain quality: aching Pain timing: increases with activity Associated signs & symptoms: none Ambulatory data Ambulatory device: none Treatments Improvement with previous injections: No Improvement with PT: No Improvement with NSAIDS: no Review of Systems Review of Systems: All systems negative unless otherwise noted in HPI.
== END 2024-10-21 13:51 | disposition home or self-care (01) ==
PROVIDERS: PCP Student in an Organized Health Care Education/Training Program; Referring Provider Student in an Organized Health Care Education/Training Program; Supervising Provider Orthopaedic Surgery Adult Reconstructive Orthopaedic Surgery; Visit Provider Orthopaedic Surgery Adult Reconstructive Orthopaedic Surgery
DX: Z96.652 Presence of left artificial knee joint (principal); M25.562 Pain in left knee; E11.9 Type 2 diabetes mellitus without complications; E03.9 Hypothyroidism, unspecified; I10 Essential (primary) hypertension; E78.00 Pure hypercholesterolemia, unspecified; I25.10 Atherosclerotic heart disease of native coronary artery without angina pectoris
CPT/HCPCS: 99213; G0463

== ENCOUNTER 2025-05-05 07:52 | Outpatient (AMB) | payer MEDICARE, SELFPAY ==
--- NOTE | 2025-05-05 08:08 | ORTHONT_ITS ---
Vital signs 05/05/25 08:11 Height 1.7 m Height Method Stated Weight 78.613 kg Weight Measurement Method Standing Scale BMI 27.1 BP 156/69 H Blood Pressure Source Automatic Cuff Blood Pressure Location Left Upper Arm Position Sitting Respiration 18 Pulse 86 Pulse Source Monitor Temp 96.4 F L Temp Source Temporal Artery Scan Pulse Oximetry (%) 97 Oxygen Delivery Method Room Air Med/Allergies Allergies & Medications Allergies No Known Allergies Allergy (Unknown, Verified 05/05/25 08:10) Medication Reconciliation Fluticasone Propionate NASAL * (FLONASE *) 1 spry Nasally BID #0 spry 08/10/14 [History Confirmed 05/05/25] metoprolol tartrate 50 mg tablet 50 mg PO HS #0 tabs 08/10/14 [History Confirmed 05/05/25] montelukast 10 mg tablet (Singulair) 10 mg PO HS #0 tabs 08/10/14 [History Confirmed 05/05/25] albuterol sulfate 90 mcg/actuation aerosol inhaler (ProAir HFA) 2 puff inhalation BID PRN Shortness Of Breath Or Wheezing 09/21/23 [History Confirmed 05/05/25] azelastine 137 mcg (0.1 %) nasal spray 2 spray intranasal BID 09/21/23 [History Confirmed 05/05/25] clopidogrel 75 mg tablet 75 mg PO QDAY 09/21/23 [History Confirmed 05/05/25] diclofenac sodium 1 % topical gel (Arthritis Pain (diclofenac)) 4 g topical QID 09/21/23 [History Confirmed 05/05/25] famotidine 20 mg tablet 20 mg PO QDAY 09/21/23 [History Confirmed 05/05/25] fluticasone fur. 200 mcg-umeclid 62.5 mcg-vilant 25 mcg inhalat.powder (Trelegy Ellipta) 1 inh inhalation Q24H 09/21/23 [History Confirmed 05/05/25] melatonin 10 mg capsule 10 mg PO HS 09/21/23 [History Confirmed 05/05/25] mesalamine 1,000 mg rectal suppository 1 g [place] QHS 09/21/23 [History Confirmed 05/05/25] naloxone 4 mg/actuation nasal spray (Narcan) 4 mg intranasal Q3M PRN Drug Intoxication Symptoms 09/21/23 [History Confirmed 05/05/25] nitroglycerin 0.4 mg sublingual tablet 0.4 mg sublingual Q5M PRN Chest Pain 09/21/23 [History Confirmed 05/05/25] repaglinide 0.5 mg tablet 0.5 mg PO TID 09/21/23 [History Confirmed 05/05/25] rosuvastatin 40 mg tablet 40 mg PO QDAY 09/21/23 [History Confirmed 05/05/25] albuterol sulfate 0.63 mg/3 mL solution for nebulization 0.63 mg inhalation Q4H PRN Shortness Of Breath Or Wheezing 05/16/24 [History Confirmed 05/05/25] ferrous sulfate 325 mg (65 mg iron) tablet 325 mg PO TID 05/16/24 [History Confirmed 05/05/25] gabapentin 400 mg capsule 400 mg PO QDAY 05/16/24 [History Confirmed 05/05/25] isosorbide mononitrate 30 mg tablet,extended release 24 hr 30 mg PO HS 05/16/24 [History Confirmed 05/05/25] levothyroxine 50 mcg tablet 50 mcg PO QDAY 05/16/24 [History Confirmed 05/05/25] lisinopril 2.5 mg tablet 2.5 mg PO QDAY 05/16/24 [History Confirmed 05/05/25] vitamin B complex-vitamin C-folic acid 0.8 mg tablet (Jenni-Blayne) 1 tab PO QDAY 05/16/24 [History Confirmed 05/05/25] acetaminophen 500 mg tablet (Acetaminophen Extra Strength) 1,000 mg (2 x 500 mg) PO Q6H PRN pain #90 tabs 05/19/24 [Rx Confirmed 05/05/25] aspirin 81 mg tablet,delayed release 81 mg PO DAILY #60 tabs 05/19/24 [Rx Confir med 05/05/25] doxycycline hyclate 100 mg tablet 100 mg PO BID #14 tabs 05/19/24 [Rx Confirmed 05/05/25] sennosides 8.6 mg-docusate sodium 50 mg tablet (Senna-S) 1 tab-cap PO QDAY #30 tabs 05/19/24 [Rx Confirmed 05/05/25] oxycodone 5 mg tablet 5 mg PO Q6H PRN pain #28 tabs 06/03/24 [Rx Confirmed 05/05/25] cyclobenzaprine 5 mg tablet 5 mg PO QHS #60 tabs 12/23/24 [Rx Confirmed 05/05/25] Exam Exam Patient is in no acute distress and is cooperative with the examination today. Patient has a normal mood and affect. Breathing is nonlabored. In no respiratory distress. Bilateral extremities were evaluated and demonstrates sensation intact to light touch. Palpable pedal pulses are present. No significant edema is present. Left knee incision is clean dry intact. Range of motion is 0 to 110 degrees Assessment and Plan Problem List (1) History of total left knee replacement: Status: Acute Plan: Patient is a 79-year-old male status post left total knee replacement. He is doing well. He has minimal pain. We will see him back in 12 months I have ordered x-rays but he reports he is busy and cannot get new ones today Advanced Care Planning Discussion Advance care planning discussed with:: patient Office Procedures GNS Level of Care Nursing/Assessment Patient Status: Established Patient Nursing Assessment/Reassesment: Medication Reconciliation, Update PMH in EMR and Vital Signs Coordination of Care: Complex Care and Chronic Disease 1-5, Education Complex Pt/Fam, Consent,records obtained, informed consent, Results/Orders obtained and Staff clarify orders Established Patient Charge Established Patient Point Assignment: 95 Established Patient Point Charge: EP Level 3 (80-115) MA Intake Visit Data Collection New Patient or Established: Established Patient (seen at [facility] within 3 years) Reason for Visit:: L TKA FU Seen by Clinical Staff ONLY (RN/MA): No PCP or OBGYN visit in last 3 months: Yes Hx Now: No Do You Feel Safe at Home: Yes Authorities Contacted: N/A Questionairres Past Medical History Past Medical History Have you ever been diagnosed with any of the following: Neurological Problems Parkinson's Disease: Yes (beginning stages) Seizures: No Cardiology Problems Angina: Yes Coronary Artery Disease: Yes Peripheral Vascular Disease: Yes Hypercholesterolemia: Yes Congestive Heart Failure: No Hypertension: Yes Respiratory Problems Chronic Obstructive Pulmonary Disease (COPD): Yes Asthma: Yes Sleep Apnea: Yes (not using machine) Smoking: No Smoking Cessation Counseling: No Smoking Exposure: No Stomache/Intestinal Problems Hepatitis: No Genital/Urinary Problems Renal Disease: Yes (stage 3) Musculoskeletal Problems Arthritis: Yes Degenerative Disk Disease: Yes Gout: Yes Carpal Tunnel Syndrome: Yes (yun) Head,Eye,Nose,Throat Problems Cataracts: Yes Endocrine Problems Diabetes Mellitus Type 1: No Diabetes Mellitus Type 2: Yes Hypothyroidism: Yes Blood Problems Anemia: Yes Psychologic Problems Anxiety: Yes Other Problems Hospitalization: Yes Shingles: Yes Chemotherapy: Yes (2021) Chicken Pox: Yes Measles: Yes Mumps: Yes Cancer: Yes (vocal cord) Subjective Visit Visit for: follow up visit and knee Immunization / Flu Flu Vaccine in the Last 12 Months: No Flu Vaccine Exclusion Criteria: No Exclusion Criteria History of Present Illness Chief complaint: Left knee pain Ned is a pleasant 80-year-old male with a left knee pain and left knee total replacement done 12 months ago. He is doing well. He is very happy. Pain Pain level (0-10): 0 Pain duration: ON AND OFF Pain location: anterior Pain quality: aching Pain timing: increases with activity Associated signs & symptoms: none Ambulatory data Ambulatory device: none Treatments Improvement with previous injections: No Improvement with PT: No Improvement with NSAIDS: no Review of Systems Review of Systems: All systems negative unless otherwise noted in HPI.
[2025-05-05 08:11] VITALS: BP 156/69; PULSE 86; RESP 18; TEMP 35.8; O2SAT 97; BMI 27.1
== END 2025-05-05 08:26 | disposition home or self-care (01) ==
LOC: HODSRG 07:52
PROVIDERS: PCP Student in an Organized Health Care Education/Training Program; Referring Provider Student in an Organized Health Care Education/Training Program; Supervising Provider Orthopaedic Surgery Adult Reconstructive Orthopaedic Surgery; Visit Provider Orthopaedic Surgery Adult Reconstructive Orthopaedic Surgery
DX: Z96.652 Presence of left artificial knee joint (principal)
CPT/HCPCS: 99213; G0463